=== PATIENT | female | born 1990 | race Caucasian/White ===

== ENCOUNTER 2020-03-27 05:51 | Inpatient (IN) ==
[2020-03-27] MEDS ORDERED: FAMOTIDINE 20 MG/2 ML VIAL IV ONE (06:00)
[2020-03-27] MEDS ORDERED: LACTATED RINGERS 250 ML IV ONE (06:00)
[2020-03-27] MEDS ORDERED: CITRIC ACID/SODIUM CITRATE 30 ML UDCUP PO ONE (06:09)
[2020-03-27] MEDS ORDERED: ceFAZolin 3,000 MG in SYRINGE 1 EACH IV ONE (06:30)
[2020-03-27] MEDS ORDERED: BUPIVACAINE SPINAL 0.75% 2 ML AMP SPINAL ONE (06:43)
[2020-03-27] MEDS ORDERED: ONDANSETRON 4 MG/2 ML VIAL ONE (06:43)
[2020-03-27] MEDS ORDERED: MORPHINE 10 MG/10 ML VIAL ONE (06:43)
[2020-03-27] MEDS ORDERED: DEXAMETHASONE 4 MG/1 ML VIAL ONE ×2 (06:45→08:13)
[2020-03-27 07:02] LABS: Basophils % 0.2 % (0.0-0.8); Eosinophils % 0.4 % (0.00-10.9); Hematocrit 38.8 VOL% (35.7-47.0); Hemoglobin 13.3 GM/DL (12.0-16.0); Immature Granulocytes % 0.7 %; Immature Granulocytes Absolute 0.06 #; Lymphocytes # 2.3 10*3/uL (1.4-4.0); Lymphocytes % 28.1 % (21.3-54.2); Mean Corpuscular HGB Conc 34.3 GM/DL (32-36); Mean Corpuscular Volume 88.2 FL (87-102); Mean Platelet Volume 12.3 FL (9.6-12.0); Neutrophils % 65.6 % (38.7-73.9); Platelet Count 142 T/CUMM (130-400); Red Cell Distribution Width 15.9 % (9.3-17.3); White Blood Count 8.2 T/CUMM (4-12)
[2020-03-27] MEDS ORDERED: miSOPROStoL 200 MCG TABLET ONE (07:19)
[2020-03-27] MEDS ORDERED: TRANEXAMIC ACID 1,000 MG/10 ML VIAL ONE (07:19)
[2020-03-27] MEDS ORDERED: METHYLERGONOVINE 0.2 MG/1 ML AMP ONE (07:19)
[2020-03-27] MEDS ORDERED: OXYTOCIN/LR 20 UNIT/1,000 ML BAG IV ONE ×2 (07:19→08:35)
[2020-03-27] MEDS ORDERED: CARBOPROST TROMETHAMINE 250 MCG/ML AMP IM ONE (07:20)
[2020-03-27 07:27] LABS: Alanine Aminotransferase 31 U/L (13-56); Alkaline Phosphatase 129 U/L (45-117); Aspartate Amino Transferase 36 U/L (0-37); Bilirubin,Total < 0.39 MG/DL (0.2-1.0); Calcium 8.5 MG/DL (8.5-10.1)
[2020-03-27 07:28] LABS: Albumin 2.5 G/DL (3.4-5.0); Blood Urea Nitrogen 8 MG/DL (7-18); Carbon Dioxide 22 MMOL/L (21-32); Estimated Glom Filtration Rate 143 ML/MIN; Glucose 82 MG/DL (74-106); Osmolality,Calculated 271.7 MOS/KG (273-304); Potassium 3.8 MMOL/L (3.5-5.1); Sodium 138 MMOL/L (136-145); Total Protein 6.9 G/DL (6.4-8.3); Uric Acid 4.3 MG/DL (2.6-6.0)
[2020-03-27] MEDS ORDERED: LACTATED RINGERS 1,000 ML IV ONE (07:39)
[2020-03-27] MEDS ORDERED: PHENYLEPHRINE 1 MG/10 ML SYRINGE IV ONE (07:39)
[2020-03-27] MEDS ORDERED: KETOROLAC 30 MG/1 ML VIAL ONE (07:53)
[2020-03-27 08:13] LABS: Cord Arterial Blood HCO3 29.5 MMOL/L
[2020-03-27] MEDS ORDERED: BUPIVACAINE MPF 0.25% 30 ML VIAL ONE (08:13)
[2020-03-27 08:14] LABS: Cord Venous Blood HCO3 21.8 MMOL/L; Cord Venous Blood PCO2 51.1 MMHG
[2020-03-27] MEDS ORDERED: DIPH/TET/ACEL PERT BOOSTER VACCINE 0.5 ML VIAL IM ONE (08:35)
[2020-03-27] MEDS ORDERED: MEASLES/MUMPS/RUBELLA VACCINE 0.5 ML VIAL SUBCUT ONE (08:35)
[2020-03-27] MEDS ORDERED: ACETAMINOPHEN 325 MG TABLET PO PRN (08:35)
[2020-03-27] MEDS ORDERED: BENZOCAINE 20%/MENTHOL 0.5% SPRAY 56 GM CAN TOP PRN (08:35)
[2020-03-27] MEDS ORDERED: ONDANSETRON 4 MG/2 ML VIAL IV PRN (08:35)
[2020-03-27] MEDS ORDERED: BISACODYL 10 MG SUPP RECTAL PRN (08:35)
[2020-03-27] MEDS ORDERED: HYDROCORTISONE 2.5% RECTAL CREAM 30 GM TUBE TOP PRN (08:35)
[2020-03-27] MEDS ORDERED: oxyCODONE/ACETAMINOPHEN 5-325 MG TABLET PO PRN (08:35)
[2020-03-27] MEDS ORDERED: LANOLIN 50% CREAM 0.3 OZ TUBE TOP PRN (08:35)
[2020-03-27] MEDS ORDERED: WITCH HAZEL PADS 100/JAR TOP PRN (08:35)
[2020-03-27] MEDS ORDERED: RHO(D) IMMUNE GLOBULIN 300 MCG SYRINGE IM ONE (08:35)
[2020-03-27] MEDS: ONDANSETRON 4 MG/2 ML VIAL IV PRN ×2 (11:08→17:00)
[2020-03-27] MEDS: diphenhydrAMINE 50 MG/1 ML VIAL IV PRN ×2 (14:03→20:22)
[2020-03-27] MEDS: LACTATED RINGERS 1,000 ML IV SCH (14:38)
[2020-03-27] MEDS ORDERED: SODIUM CHLORIDE 0.9% 100 ML IV ONE (16:12)
[2020-03-27] MEDS: ceFAZolin 1,000 MG in SYRINGE 1 EACH IV SCH (16:15)
[2020-03-27] MEDS: IBUPROFEN 800 MG TABLET PO PRN (20:21)
[2020-03-27] MEDS: DOCUSATE SODIUM 100 MG CAPSULE PO SCH (21:45)
[2020-03-28] MEDS ORDERED: SODIUM CHLORIDE 0.9% 100 ML IV ONE (00:08)
[2020-03-28] MEDS: ceFAZolin 1,000 MG in SYRINGE 1 EACH IV SCH (00:14)
[2020-03-28] MEDS: LACTATED RINGERS 1,000 ML IV SCH (00:16)
[2020-03-28 06:02] LABS: Basophils % 0.2 % (0.0-0.8); Hematocrit 32.4 VOL% (35.7-47.0); Hemoglobin 10.9 GM/DL (12.0-16.0); Immature Granulocytes % 0.5 %; Immature Granulocytes Absolute 0.06 #; Lymphocytes # 2.3 10*3/uL (1.4-4.0); Lymphocytes % 20.7 % (21.3-54.2); Mean Corpuscular HGB Conc 33.6 GM/DL (32-36); Mean Corpuscular Volume 90.3 FL (87-102); Mean Platelet Volume 12.4 FL (9.6-12.0); Monocytes % 3.5 % (1.7-12.7); Neutrophils % 75.1 % (38.7-73.9); Red Blood Count 3.59 MC/CUMM (3.8-5.5); Red Cell Distribution Width 15.8 % (9.3-17.3); White Blood Count 11.3 T/CUMM (4-12)
[2020-03-28 06:05] LABS: Platelet Count 101 T/CUMM (130-400)
[2020-03-28] MEDS: oxyCODONE/ACETAMINOPHEN 5-325 MG TABLET PO PRN ×3 (06:20→21:17)
[2020-03-28 06:31] LABS: Hypochromasia 1+; Platelet Estimate Decreased
[2020-03-28] MEDS: DOCUSATE SODIUM 100 MG CAPSULE PO SCH ×2 (08:41→21:17)
[2020-03-28] MEDS: IBUPROFEN 800 MG TABLET PO PRN ×2 (11:19→19:44)
[2020-03-28] MEDS ORDERED: MAGNESIUM HYDROXIDE SUSP 30 ML UDCUP PO ONE (15:43)
[2020-03-29] MEDS: IBUPROFEN 800 MG TABLET PO PRN (01:47)
[2020-03-29] MEDS: oxyCODONE/ACETAMINOPHEN 5-325 MG TABLET PO PRN ×2 (03:27→10:05)
[2020-03-29 08:03] VITALS: BP 108/64
[2020-03-29] MEDS: DOCUSATE SODIUM 100 MG CAPSULE PO SCH (09:25)
== END 2020-03-29 13:15 | disposition home or self-care (01) | DRG 788 ==
LOC: N.LD 05:51
PROVIDERS: ADMIT Specialist; ATTEND Specialist
PROC: LDCSECT (ICD-10-PCS; 2020-03-27 07:30)